=== PATIENT | male | born 1990 | race Caucasian/White ===

== ENCOUNTER → 2022-11-05 15:26 | Outpatient (CLI) | payer OTHER, SELFPAY ==
[2022-11-05 17:56] LABS: MANUAL DIFFERENTIAL MANUAL DIFFERENTIAL (MANUAL DIFF)
[2022-11-05 18:38] LABS: Alanine Aminotransferase 68 U/L (12-78); Albumin/Globulin Ratio 2.2 (1.1-1.8); Alkaline Phosphatase 53 U/L (38-126); Anion Gap 19.5 mEq/L (5-15); Aspartate Amino Transferase 52 U/L (17-59); Bilirubin,Total 0.9 mg/dl (0.2-1.3); Blood Urea Nitrogen 15 mg/dl (9-20); Calcium 9.2 mg/dl (8.4-10.2); Carbon Dioxide 27 mmol/L (22.0-30.0); Chloride 95 mmol/L (98-107); Chol/HDL Ratio 4.4 (1-3.5); Cholesterol 175 mg/dl (140-200); Estimated Glomerular Filt Rate 129 ml/min (>60); GFR (African American) 156 ML/MIN (>60); Globulin 2.3 g/dL (1.3-3.2); Glucose 79 mg/dl (74-100); HDL Cholesterol 40 mg/dl (40-60); Potassium 3.5 mmoL/L (3.5-5.1); Sodium 138 mmol/L (136-145); Total Protein,Serum 7.3 g/dl (6.3-8.2); Triglycerides 111 mg/dl (30-150); VLDL Cholesterol 22 mg/dL (0-40)
[2022-11-05 18:51] LABS: Direct LDL Cholesterol 106.54 mg/dL (100-129)
[2022-11-05 19:08] LABS: Thyroid Stimulating Hormone 0.87 uIU/mL (0.465-4.68)
[2022-11-05 19:27] LABS: Creatinine,Urine Random 148 mg/dL (Not Estab.); Microalbumin < 6.000 mg/L (0-16.7); Vitamin B12 809 pg/mL (239-931)
[2022-11-05 23:14] LABS: Basophils # 0.1 K/mm3 (0-0.2); Basophils % 0.7 % (0.1-2.0); Eosinophils # 0.2 K/mm3 (0.0-0.4); Eosinophils % 1.9 % (0.1-12.0); Hemoglobin 16.7 g/dL (14.1-18.0); Lymphocytes # 2.5 K/mm3 (0.7-4.5); Lymphocytes % 27.9 % (10-50); Mean Corpuscular HGB Conc 33.5 g/dL (31.8-35.4); Mean Corpuscular Hemoglobin 30.5 pg (27.0-31.2); Mean Platelet Volume 10.5 fl (7.4-10.4); Monocytes # 0.5 K/mm3 (0.1-1.0); Monocytes % 5.5 % (1.7-9.3); Neutrophils # 5.7 K/mm3 (1.8-7.8); Platelet Count 309 K/mm3 (142-424); Red Blood Count 5.49 M/mm3 (4.60-6.20); Red Cell Distribution Width 12.5 % (11.5-17.5); White Blood Count 8.9 K/mm3 (4.8-10.8)
[2022-11-05 23:21] LABS: Lymphocytes % 27 % (10-50); Monocytes % 5 % (2-9); Neutrophils % 67 % (42-76); Platelet Estimate Normal; RBC Morphology Normal; Total Cells Counted 100
[2022-11-14 16:14] LABS: Testosterone, Total, LC/MS 427 ng/dL (.)
== END ==
PROVIDERS: PCP Family Medicine; Visit Provider Family Medicine
DX: I10 Essential (primary) hypertension (principal); R53.83 Other fatigue; E66.9 Obesity, unspecified; Z68.31 Body mass index [BMI] 31.0-31.9, adult
CPT/HCPCS: 80053; 80061; 82043; 82306; 82570; 82607; 84403; 84443; 85007; 85014; 85018; 85048; 85049

== ENCOUNTER 2025-05-23 13:15 | Outpatient (CLI) | payer BC, SELFPAY ==
--- NOTE | 2025-05-23 13:17 | US_ITS ---
FINAL REPORT TECHNIQUE: Sonographic images of the right upper quadrant were obtained. CLINICAL HISTORY: NAUSEA AND VOMITING FINDINGS: PANCREAS: The tail is obscured. The head is normal.. LIVER: Fatty liver. No focal lesion. There is focal fatty sparing adjacent to the gallbladder. No intrahepatic biliary ductal dilatation. GALLBLADDER: No gallstones. No gallbladder wall thickening or pericholecystic fluid. COMMON DUCT: 3 mm. Normal for age. RIGHT KIDNEY: The right kidney measures 10.9 cm. There is no hydronephrosis, mass, or stone. FREE FLUID: None. IMPRESSION: Fatty liver. Reviewed, Interpreted and Dictated by Colleen Palacios MD Transcribed by Arleen Guveara Authenticated and [facility]
== END 2025-05-23 23:59 | disposition home or self-care (01) ==
PROVIDERS: PCP Family Medicine; Visit Provider Family Medicine
DX: K76.0 Fatty (change of) liver, not elsewhere classified (principal); R11.2 Nausea with vomiting, unspecified; R10.13 Epigastric pain
CPT/HCPCS: 76705